=== PATIENT | female | born 1960 | race Caucasian/White ===

== ENCOUNTER → 2018-07-06 | Outpatient (CLI) | payer BC | LOC: COL.RAD 11:30 | DX: M79.671 Pain in right foot (principal) ==

== ENCOUNTER → 2019-04-08 | Outpatient (CLI) | payer BC | LOC: COL.RAD 15:34 | DX: M19.012 Primary osteoarthritis, left shoulder (principal); Z87.81 Personal history of (healed) traumatic fracture ==

== ENCOUNTER 2019-08-23 23:28 | Observation (INO) | payer BC ==
[~2019-08-23] VITALS: Ht 170.2 cm; Wt 104.0 kg
[2019-08-23 23:48] LABS: COLLECTION METHOD CLEAN CATCH
[2019-08-23 23:59] LABS: MUCOUS Present /lpf; PH 5 (5-8); URINE APPEARANCE Clear; URINE BACTERIA None Seen /hpf; URINE BILIRUBIN Negative (NEGATIVE); URINE BLOOD 3+ (NEGATIVE); URINE COLOR Yellow; URINE GLUCOSE Negative (NEGATIVE); URINE KETONE Negative (NEGATIVE); URINE LEUKOCYTE ESTERASE Negative (NEGATIVE); URINE NITRATE Negative (NEGATIVE); URINE PROTEIN(semi-quant) Negative (NEGATIVE); URINE RBC >50 /hpf; URINE UROBILINOGEN Negative (NEGATIVE)
[2019-08-24] VITALS (8 sets, daily range): BP systolic 119–143; BP diastolic 48–89; PULSE 62–77; TEMP 97.4–98.2
[2019-08-24 00:06] LABS: BASO # 0.1 (0.0-0.2); BASO % 0.3 % (0.0-2.0); EOS % 0.1 % (0-4.0); GRAN % 80.8 % (42.2-75.2); HEMATOCRIT 43.4 % (37.0-47.0); HEMOGLOBIN 14.2 g/dl (12.5-16.0); LYMPH # 1.6 (1.2-3.4); LYMPH % 10.8 % (20.0-51.0); MEAN CELL VOLUME 88 fl (80.0-100.0); MEAN CORPUSCULAR HEMOGLOBIN 29 pg (27.0-31.0); MEAN CORPUSCULAR HGB CONC 33 g/dl (33.0-37.0); MEAN PLATELET VOLUME 9.3 fl (7.4-10.4); MONO # 1.1 (0.1-0.6); MONO % 7.4 % (1.7-9.3); PLATELET COUNT 323 K/mm3 (130-400); RED BLOOD COUNT 4.96 M/mm3 (4.10-5.30); REDCELL DISTRIBUTION WIDTH-CV 13.4 % (11.5-14.5)
[2019-08-24 00:12] LABS: ALBUMIN 4.6 gm/dL (3.5-5.0); BILIRUBIN,TOTAL 0.5 mg/dL (0.0-1.0); C-REACTIVE PROTEIN 0.6 mg/dL (0.0-0.9); CALCIUM 9.3 mg/dL (8.4-10.2); CREATININE, serum 0.68 (0.52-1.25); TOTAL PROTEIN 8.1 gm/dL (6.4-8.2)
--- NOTE | 2019-08-24 03:00 | NUR ---
PT ADMITTED TO ROOM 342 PER WC FROM ED FOR RT KIDNEY STONE 5MM. A&O X4. ORIENTED TO ROOM AND PLAN OF CARE. HAVING RT FLANK PAIN. REFUSING PAIN MED AT THIS TIME. LEVEL 5/10. NO NAUSEA. IV NS STARTED AT 125CC/HR. ASSISTED UP TO BR. VOIDED 600CC CLEAR DILUTE URINE- STRAINED. NO STONES OR FRAGMENTS. CALL LIGHT IN REACH. NPO STATUS.
--- NOTE | 2019-08-24 03:00 | NUR ---
ADMITTED FROM ER PER WC TO ROOM 342. NPO STATUS. FOR RT KIDNEY STONE 5CM. PROCEDURE LATER TODAY. IVFS NS STQARTED AT 125CC/HR PER PUMP. PT DECLINED NEED FOR PAIN MED. ASSISTED TO BR . VOIDED CLEAR DILUTE YELLOW URINE. ORIENTED TO ROOM AND PLAN OF CARE. CALL LIGHT IN REACH.
[2019-08-24] MEDS ORDERED: IBU800 M1 PO (03:05)
[2019-08-24] MEDS ORDERED: MOVE FREE PO (03:07)
[2019-08-24] MEDS ORDERED: GAS AID MAXIMU125 MG PO (03:08)
[2019-08-24] MEDS ORDERED: CORRECTOL5 MG PO (03:09)
--- NOTE | 2019-08-24 07:30 | NUR ---
Medicated with Dilaudid for c/o pain. Dr. Almeida saw patient. NPO for surgery. Urine strained.
--- NOTE | 2019-08-24 09:45 | NUR ---
Slept after pain medication. To surgery per bed with OR staff.
--- NOTE | 2019-08-24 12:05 | NUR ---
Returned to room from PACU per bed. No c/o pain or nausea. Ambulatory to bathroom and voided. VSS.
--- NOTE | 2019-08-24 12:45 | NUR ---
stopped by but nothing needed at this time. Patient had just come up from procedure.
--- NOTE | 2019-08-24 15:40 | NUR ---
Voiding well without complaint. VSS. Dr. Almeida talked to patient. Prescription given. Dismissed to home with daughter.
== END 2019-08-24 15:40 | disposition home or self-care (01) ==
LOC: COL.ER 23:28 → SURG 08-24 01:49
PROVIDERS: Physician Assistant; ADMIT Urology
DX: N13.2 Hydronephrosis with renal and ureteral calculous obstruction (principal); K42.9 Umbilical hernia without obstruction or gangrene; K76.0 Fatty (change of) liver, not elsewhere classified; Z79.899 Other long term (current) drug therapy; F17.210 Nicotine dependence, cigarettes, uncomplicated
CPT/HCPCS: A4216; C1769; C2617; G0378; J0690; J0696; J1170; J1885; J2405; J2550; J2704; J3010; J7030; J7120; Q9967

== ENCOUNTER → 2019-12-27 | Outpatient (CLI) | payer BC ==
[~2019-12-27] MED LIST: CORRECTOL5 MG PO; GAS AID MAXIMU125 MG PO; IBU800 M1 PO; MOVE FREE PO
== END ==
LOC: COL.RAD 11:39
DX: M94.262 Chondromalacia, left knee (principal); M23.92 Unspecified internal derangement of left knee

== ENCOUNTER → 2020-01-02 | Outpatient (CLI) | payer BC | LOC: MC.RAD 13:26 | DX: Z12.31 Encounter for screening mammogram for malignant neoplasm of breast (principal); N64.89 Other specified disorders of breast ==

== ENCOUNTER → 2021-05-20 | Outpatient (CLI) | payer BC | LOC: COL.RAD 11:25 | DX: K57.30 Diverticulosis of large intestine without perforation or abscess without bleeding (principal); K80.20 Calculus of gallbladder without cholecystitis without obstruction ==

== ENCOUNTER 2021-10-30 08:32 | Emergency (ER) | payer OTHER ==
[~2021-10-30] VITALS: Ht 198.1 cm; Wt 106.8 kg
[2021-10-30 08:37] VITALS: TEMP 98.1
[2021-10-30 08:59] LABS: BASO # 0.1 K/mm3 (0.0-0.2); BASO % 0.6 % (0.0-2.0); EOS # 0.2 K/mm3 (0.0-0.7); EOS % 1.8 % (0.0-4.0); GRAN # 7.5 K/mm3 (1.4-6.5); HEMATOCRIT 39.9 % (37.0-47.0); LYMPH # 1.8 K/mm3 (1.2-3.4); LYMPH % 16.9 % (20.0-51.0); MEAN CELL VOLUME 91 fl (80.0-100.0); MEAN CORPUSCULAR HEMOGLOBIN 30 pg (27-31); MEAN CORPUSCULAR HGB CONC 33 g/dl (33.0-37.0); MEAN PLATELET VOLUME 8.8 fl (7.4-10.4); MONO # 1.1 K/mm3 (0.1-0.6); PLATELET COUNT 477 K/mm3 (130-400); REDCELL DISTRIBUTION WIDTH-CV 13.4 % (11.5-14.5)
[2021-10-30] MEDS ORDERED: ASPERCREME LID113 GM TP (08:59)
[2021-10-30] MEDS ORDERED: ASPIRIN 81M81 MG/TA2 PO (09:00)
[2021-10-30] MEDS ORDERED: ROXICODONE 55 MG/TAB PO (09:00)
[2021-10-30] MEDS ORDERED: TYLENOL 325MG325 MG PO (09:01)
[2021-10-30] MEDS ORDERED: STOOL SOFTENER100 M2 PO (09:01)
[2021-10-30 09:08] LABS: C-REACTIVE PROTEIN 2.44 mg/dL (0.00-0.50); CALCIUM 9.3 mg/dL (8.4-10.2); CREATININE, serum 0.69 mg/dL (0.57-1.11); POTASSIUM 3.7 mmol/L (3.5-4.5)
[2021-10-30 11:13] VITALS: BP 125/76; PULSE 95
== END 2021-10-30 11:10 | disposition home or self-care (01) ==
LOC: COL.ER 08:32
PROVIDERS: Emergency Medicine
DX: M79.651 Pain in right thigh (principal)
CPT/HCPCS: J7030; Q9967

== ENCOUNTER → 2021-11-01 | Outpatient (CLI) | payer OTHER ==
[~2021-11-01] MED LIST changes: +ASPERCREME LID113 GM TP; +ASPIRIN 81M81 MG/TA2 PO; +ROXICODONE 55 MG/TAB PO; +STOOL SOFTENER100 M2 PO; +TYLENOL 325MG325 MG PO
== END ==
LOC: COL.VAS 08:01
DX: M79.604 Pain in right leg (principal)

== ENCOUNTER → 2022-09-01 | Outpatient (CLI) | payer OTHER | LOC: MHCPAIN 11:59 | DX: M54.18 Radiculopathy, sacral and sacrococcygeal region (principal); M53.3 Sacrococcygeal disorders, not elsewhere classified; M54.50 Low back pain, unspecified | CPT/HCPCS: G0260; J1040; Q9967 ==